=== PATIENT | female | born 1970 | race Caucasian/White ===

== ENCOUNTER 2017-10-21 14:07 | Emergency (ER) | payer OTHER ==
[~2017-10-21] VITALS: Ht 162.6 cm; Wt 56.3 kg
[2017-10-21 14:11] VITALS: Ht 162.6 cm; Wt 56.3 kg
[2017-10-21] MEDS ORDERED: KETOROLAC 30 MG INJ IM STA (15:23)
[2017-10-21] MEDS ORDERED: ONDANSETRON (ODT) 4 MG TAB ODT STA (15:23)
[2017-10-21 16:02] LABS: URINE BLOOD (Dip) POC 3+ (NEGATIVE)
--- NOTE | 2017-10-21 16:02 | ERD ---
ER Documentation Chief Complaint Chief Complaint Headache, flu like s/s, vomitting HPI 46-year-old female complains of frontal headache, sore throat, congestion, nausea vomiting starting last night. She reports a tactile fever that occurred last night. She reports episodes of nonbloody nonbilious emesis, no abdominal pain, chest pain or shortness of breath. She reports frontal headache that is pressure-like. ROS All systems reviewed and are negative except as per history of present illness. Medications Home Meds Active Scripts Ondansetron (Ondansetron Odt) 4 Mg Tab.rapdis, 4 MG PO Q6H Y for NAUSEA AND/OR VOMITING, #10 TAB Prov:KORIN JONES PA-C 10/21/17 Ibuprofen* (Motrin*) 600 Mg Tab, 600 MG PO Q6, #30 TAB Prov:KORIN JONES PA-C 10/21/17 Cephalexin* (Keflex*) 500 Mg Capsule, 500 MG PO TID for 5 Days, CAP Prov:KORIN JONES PA-C 10/21/17 Allergies Allergies: Coded Allergies: No Known Allergy (Unverified , 10/21/17) PMhx/Soc Medical and Surgical Hx: pt denies Medical Hx, pt denies Surgical Hx Hx Alcohol Use: Yes (occassionaL) Hx Substance Use: No Hx Tobacco Use: Yes Smoking Status: Light tobacco smoker Physical Exam Vitals Vital Signs Date Time Temp Pulse Resp B/P Pulse Ox O2 Delivery O2 Flow Rate FiO2 10/21/17 14:11 98.1 91 20 131/100 99 Physical Exam General: Well-developed, well-nourished. The patient appears in no acute distress. HEENT: Head is normocephalic, atraumatic. No scleral icterus. Pupils are equal , round, and reactive. Oral mucous membranes are moist. No pharyngeal erythema. Neck: Supple. Nontender. Lungs: Clear to auscultation. Normal air movement. Heart: Regular rate and rhythm. S1 and S2 are normal. No murmurs, gallops, or rubs. Abdomen: Soft, nontender, nondistended. Bowel sounds are normoactive. Extremities: No clubbing or cyanosis. Normal pulses. Moving extremities x 4. No weakness. Neurologic: Alert and oriented 3. No focal deficits. Skin: Normal turgor. No rash or lesions. Results 24 hrs Laboratory Tests Test 10/21/17 15:36 Bedside Urine pH (LAB) 6.0 Bedside Urine Protein (LAB) 1+ Bedside Urine Glucose (UA) Negative Bedside Urine Ketones (LAB) 1+ Bedside Urine Blood 3+ Bedside Urine Nitrite (LAB) Negative Bedside Urine Leukocyte Esterase (L 1+ Current Medications Medications (Trade) Dose Ordered Sig/Gerson Route PRN Reason Start Time Stop Time Status Last Admin Dose Admin Ondansetron HCl (Zofran Odt) 4 mg ONCE STAT ODT 10/21/17 15:23 10/21/17 15:25 DC 10/21/17 15:51 Ketorolac Tromethamine (Toradol) 30 mg ONCE STAT IM 10/21/17 15:23 10/21/17 15:25 DC 10/21/17 15:51 Procedures/MDM ED COURSE: An is negative. Patient was given Toradol 30 mg IM and Zofran 4 mg ODT. MEDICAL DECISION MAKING: The patient is a 46-year-old female who comes in with symptoms of cough, sore throat, congestion, headache with nausea vomiting. The patient symptoms are most consistent with a viral syndrome, and urine was checked and shows a trace leukocyte esterase and we treated for UTI given her history of nausea vomiting and headache and fever. Patient does not have any clinical signs of meningitis , encephalitis, bowel obstruction. The patient has a differential diagnosis of a viral upper respiratory infection, bacterial upper respiratory infection, bronchitis, pneumonia, pharyngitis, laryngitis, epiglottitis, croup, pneumonia. Patient has a normal pulmonary examination, clear breath sounds, normal pulse oximetry, with no corrective measures needed at this time. Fluids, rest, antipyretics were encouraged. Departure Diagnosis: Primary Impression: Headache Additional Impressions: UTI (urinary tract infection) Viral syndrome Condition: KORIN Upton PA-C Oct 21, 2017 16:02
[2017-10-21] MEDS ORDERED: IBUP-1542 PO (16:33)
[2017-10-21] MEDS ORDERED: CEPH-443 PO (16:33)
[2017-10-21] MEDS ORDERED: ONDA4TAB14 PO (16:33)
== END 2017-10-21 16:42 | disposition home or self-care (01) ==
LOC: FTE 14:07
DX: N39.0 Urinary tract infection, site not specified (principal); B34.9 Viral infection, unspecified; F17.210 Nicotine dependence, cigarettes, uncomplicated
CPT/HCPCS: 81003; 96372

== ENCOUNTER 2018-08-09 14:31 | Emergency (ER) | END 2018-08-09 17:34 | disposition home or self-care (01) ==